=== PATIENT | male | born 1965 | race Caucasian/White ===

== ENCOUNTER 2021-07-23 10:39 | Emergency (ER) | payer BC ==
--- NOTE | 2021-07-23 11:23 | EDM.PDOC ---
ED HPI GENERAL MEDICAL PROBLEM - General Chief Complaint: Respiratory Problem Stated Complaint: COVID + LOW 02 Time Seen by Provider: 07/23/21 11:14 Source of Information: Reports: Patient, RN Notes Reviewed History Limitations: Reports: No Limitations - History of Present Illness INITIAL COMMENTS - FREE TEXT/NARRATIVE: Patient is a 56-year-old male who presents to the ER for the evaluation of his COVID-19 symptoms. Patient notes that he has been sick for around 10 days, and was diagnosed with COVID-19 last Monday. He was given IV Regeneron therapy and fluids on Monday, July 19, 2021, notes that he has not had much relief in his symptoms since then, or he feels like he is just not getting much better. He was checking his oxygen at home and noted that it was as low as 81% on room air. The patient's O2 sats when he presents to the ER, was as low as 88% right after getting back to the ER bed, but do improve to 90 to 92% with rest. Patient does look somewhat breathless, but is in no visible respiratory distress. States he is not having increasing fevers, chills, still has the shortness of breath, he is having no active chest pain, or any sort of nausea/vomiting/diarrhea, states he has been able to eat and drink a little bit more. Patient states that he did check his oxygen saturations on about 6 different fingers, and noted them all to be within the 80s. Patient's primary care provider is Radha Sanchez. States he did not receive the COVID-19 vaccine. - Related Data Allergies Allergy/AdvReac Type Severity Reaction Status Date / Time No Known Allergies Allergy Verified 07/23/21 11:16 Home Meds: Home Meds atorvaSTATin [Lipitor] 10 mg PO BEDTIME 07/23/21 [History] dexAMETHasone [Decadron] 6 mg PO DAILY #4 tablet 07/23/21 [Rx] lisinopriL [Lisinopril] 20 mg PO DAILY 07/23/21 [History] Past Medical History Cardiovascular History: Reports: High Cholesterol, Hypertension - Infectious Disease History Infectious Disease History: Reports: Novel Coronavirus (07/17/21) - Past Surgical History Musculoskeletal Surgical History: Reports: Other (See Below) Other Musculoskeletal Surgeries/Procedures:: Neuroma removed from the feet, arthritic joint clean up on foot Social & Family History - Tobacco Use Tobacco Use Status *Q: Never Tobacco User - Caffeine Use Caffeine Use: Reports: None - Recreational Drug Use Recreational Drug Use: No ED ROS GENERAL - Review of Systems Review Of Systems: Comprehensive ROS is negative, except as noted in HPI. ED EXAM, GENERAL - Physical Exam Exam: See Below Exam Limited By: No Limitations General Appearance: Alert, WD/WN, No Apparent Distress (Mild generalized omaira thlessness, but no obvious distress) Respiratory/Chest: No Respiratory Distress, Lungs Clear, No Accessory Muscle Use, Chest Non-Tender, Decreased Breath Sounds (diffuse bilaterally) Cardiovascular: Normal Peripheral Pulses, Regular Rate, Rhythm, No Edema Peripheral Pulses: 2+: Radial (L), Radial (R) GI/Abdominal: Normal Bowel Sounds, Soft, Non-Tender, No Distention, No Mass Extremities: Normal Inspection, Normal Capillary Refill Neurological: Alert, Oriented, Normal Cognition, No Motor/Sensory Deficits Psychiatric: Normal Affect, Normal Mood Skin Exam: Warm, Dry, Intact, Normal Color, No Rash #1 Interpretation EKG Date: 07/23/21 Time: 11:23 Rhythm: NSR Rate (Beats/Min): 87 [place]: LAD-Left [place] Deviation (borderline) P-Wave: Present QRS: Normal ST-T: Normal QT: Normal Comparison: NA - No Prior EKG EKG Interpretation Comments: No obvious ischemia or acute ST changes noted, reviewed by myself and Dr. Díaz. Course - Vital Signs Last Recorded V/S: Last Vital Signs Temp 98.6 F 07/23/21 11:13 Pulse 86 07/23/21 11:13 Resp 20 07/23/21 11:13 BP 150/95 H 07/23/21 11:13 Pulse Ox 91 L 07/23/21 11:13 - Orders/Labs/Meds Labs: Laboratory Tests 07/23/21 07/23/21 Range/Units 11:15 11:15 WBC 8.35 (4.23-9.07) K/mm3 RBC 4.97 (4.63-6.08) M/mm3 Hgb 14.6 (13.7-17.5) gm/dl Hct 43.6 (40.1-51.0) % MCV 87.7 (79.0-92.2) fl MCH 29.4 (25.7-32.2) pg MCHC 33.5 (32.2-35.5) g/dl RDW Std Deviation 46.2 H (35.1-43.9) fL Plt Count 345 H (163-337) K/mm3 MPV 10.0 (9.4-12.3) fl Neut % (Auto) 69.1 H (34.0-67.9) % Lymph % (Auto) 11.1 L (21.8-53.1) % [place] % (Auto) 12.2 (5.3-12.2) % Eos % (Auto) 3.6 (0.8-7.0) Baso % (Auto) 0.4 (0.1-1.2) % Neut # (Auto) 5.77 H (1.78-5.38) K/mm3 Lymph # (Auto) 0.93 L (1.32-3.57) K/mm3 [place] # (Auto) 1.02 H (0.30-0.82) K/mm3 Eos # (Auto) 0.30 (0.04-0.54) K/mm3 Baso # (Auto) 0.03 (0.01-0.08) K/mm3 Sodium 142 (136-145) mEq/L Potassium 3.6 (3.5-5.1) mEq/L Chloride 105 (98-107) mEq/L Carbon Dioxide 28 (21-32) mEq/L Anion Gap 12.6 (5-15) BUN 16 (7-18) mg/dL Creatinine 1.1 (0.7-1.3) mg/dL Est Cr Clr Drug Dosing 69.27 mL/min Estimated GFR (MDRD) > 60 (>60) mL/min BUN/Creatinine Ratio 14.5 (14-18) Glucose 108 H (70-99) mg/dL Calcium 8.4 L (8.5-10.1) mg/dL Total Bilirubin 0.5 (0.2-1.0) mg/dL AST 78 H (15-37) U/L ALT 103 H (16-63) U/L Alkaline Phosphatase 85 (46-116) U/L Troponin I < 0.017 (0.00-0.056) ng/mL C-Reactive Protein 12.2 H* (<1.0) mg/dL Total Protein 7.4 (6.4-8.2) g/dl Albumin 2.6 L (3.4-5.0) g/dl Globulin 4.8 gm/dL Albumin/Globulin Ratio 0.5 L (1-2) Meds: Medications Discontinued Medications Generic Name Dose Route Start Last Admin Trade Name Andrea PRN Reason Stop Dose Admin Dexamethasone 6 mg 07/23/21 12:05 07/23/21 12:19 Dexamethasone 10 Mg/Ml Sdv IVPUSH 07/23/21 12:06 6 mg ONETIME ONE Administration - Re-Assessments/Exams Free Text/Narrative Re-Assessment/Exam: 07/23/21 11:36 Patient presents to the ER for his worsening COVID-19 symptoms, since he is already had Regeneron therapy, and some IV fluids, we will monitor his oxygen levels for a period of time while being in the ER, we will repeat a chest x-ray, and get a few labs for further evaluation. 07/23/21 12:17 Patient's laboratory evaluation is essentially unremarkable, CRP is elevated at 12.2, we will try to get him home with some dexamethasone, first dose to be given in the ER. We will continue to monitor his oxygen levels, for at least 1 more hour, they have been staying in the low 90s at 91-92% while being in the ER before. The patient's chest x-ray does show diffuse patchy infiltrates, consistent with Covid pneumonia at this time. Departure - Departure Time of Disposition: 13:29 Disposition: Home, Self-Care 01 Condition: Fair Clinical Impression: Pneumonia due to 2019 novel coronavirus - Discharge Information *PRESCRIPTION DRUG MONITORING PROGRAM REVIEWED*: No *COPY OF PRESCRIPTION DRUG MONITORING REPORT IN PATIENT HUMBERTO: No Prescriptions: dexAMETHasone [Decadron] 6 mg PO DAILY #4 tablet Instructions: 10 Things You Can Do to Manage Your COVID-19 Symptoms at Home - [facility] (05/20/2020), COVID-19: What to Do if You Are Sick - [facility] (11/19/2020) Referrals: Radha Sanchez NP [Primary Care Provider] - Forms: ED Department Discharge Additional Instructions: You were seen in the ER today for ongoing and/or worsening respiratory symptoms. Your chest x-ray showed subtle signs of viral pneumonia at this time. Your oxygen levels were acceptable at 92% on room air. Please try to increase your oral fluid intake, and eat multiple small meals throughout the day, to keep yourself healthy. You need to keep yourself nourished in order to fight off this disease. You can try a liquid diet like gatorade/powerade as well to get your electrolytes. You may take 500 mg Tylenol every hours 6 hours for pain/fever relief. Do not exceed 4000 mg Tylenol in a 24-hour time span. However, running a fever is your body's natural response to illness, and it allows the body to develop antibodies to disease, we are recommending trying to limit the use of Tylenol as much as possible to allow your body's natural immune response. You were given a prescription for dexamethasone, you will be given enough tablets for the next few days, you need to take 1 tablet daily until gone. This should help relieve some of the inflammation that COVID-19 causes. This p rescription was electronically prescribed to the pharmacy you had listed, which was the [facility]. Continue to monitor your oxygen levels at home, you should place the monitor on your finger, and sit in a calm, quiet position for a few minutes and then record the number that is on the screen. If this consistently below 90% on room air without movement, this would be cause for concern to come back to the hospital for further management of your COVID-19 disease. You may want to try laying on your abdomen (laying prone), for several hours a day to help improve your shortness of breath, as this positioning seems to provide some benefit for patients with COVID-19. Please follow all guidance set forth from [facility], regarding isolation purposes for your disease process. General isolation times are 10 days from when you started being symptomatic. Sepsis Event Note (ED) - Evaluation Sepsis Screening Result: No Definite Risk - Focused Exam Vital Signs: Vital Signs Temp Pulse Resp BP Pulse Ox 07/23/21 11:13 98.6 F 86 20 150/95 H 91 L
[2021-07-23] MEDS ORDERED: Dexamethasone 10 MG/ML SDV IVPUSH ONE (12:05)
--- NOTE | 2021-07-23 12:13 | CR ---
Chest: Portable view of the chest was obtained. Comparison: No previous study. Patchy areas of increased density are seen throughout both lungs. Heart size and mediastinum are normal. No acute osseous abnormality is appreciated. Impression: 1. Findings compatible with fairly severe bilateral Covid pneumonia. Diagnostic code #3
== END 2021-07-23 14:28 | disposition home or self-care (01) ==
LOC: JD.ED 10:39
DX: U07.1 COVID-19 (principal); J12.82 Pneumonia due to coronavirus disease 2019; E78.00 Pure hypercholesterolemia, unspecified; I10 Essential (primary) hypertension; Z79.899 Other long term (current) drug therapy
CPT/HCPCS: 36415; 71045; 80053; 84484; 85025; 86140; 93005; 96374; 99284; J1100; 93010; 99283